=== PATIENT | female | born 1940 | race Caucasian/White ===

== ENCOUNTER 2018-10-30 06:10 | Day surgery (SDC) | payer MEDICARE, BC ==
[2018-10-30] VITALS (513 sets, daily range): BP systolic 112–171; BP diastolic 40–86; PULSE 51–64; TEMP 97.6–97.8; O2SAT 74–99
[~2018-10-30] VITALS: Ht 152.4 cm; Wt 70.1 kg
[~2018-10-30 06:10] MED LIST: ASPIR-LOW81 MG PO; COUMADIN 3MG3 MG/TAB PO; CRESTOR20 MG PO; EVISTA PO; FERROUS SU325 MG/TAB PO; FISH OIL CONC1000 MG PO; FOLIC ACID PO; GLUCOSAMINE/CHONDROI PO; LORTAB 5/500 501 TAB; OSCAL 500MG/VI500 MG PO; TENORMIN 5050 MG/TAB PO; VASOTEC5 MG PO; ZETIA10 MG PO
[2018-10-30 06:59] LABS: HEMATOCRIT 46.2 % (37.0-47.0); MEAN CELL VOLUME 93 fl (80.0-100.0); MEAN CORPUSCULAR HEMOGLOBIN 32 pg (27.0-31.0); MEAN CORPUSCULAR HGB CONC 35 g/dl (33.0-37.0); MEAN PLATELET VOLUME 8.9 fl (7.4-10.4); PLATELET COUNT 175 K/mm3 (130-400); RED BLOOD COUNT 4.97 M/mm3 (4.10-5.30)
[2018-10-30 07:10] LABS: PROTHROMBIN TIME 11.6 SECONDS (9.7-12.8)
[2018-10-30 07:17] LABS: CALCIUM 9.8 mg/dL (8.4-10.2); CREATININE, serum 0.72 (0.52-1.25); POTASSIUM 4.7 mmol/L (3.4-5.0)
[2018-10-30] MEDS ORDERED: CALCIUM-MAGNES1 EAC1 PO (07:36)
[2018-10-30] MEDS ORDERED: THE MEDICINE S200 M2 PO (07:37)
[2018-10-30] MEDS ORDERED: LUTEIN20 M1 PO (07:37)
[2018-10-30] MEDS ORDERED: MASON NATURAL1200 MG PO (07:38)
[2018-10-30] MEDS ORDERED: NATURE'S BLE1000 MCG PO (07:39)
[2018-10-30] MEDS ORDERED: MASON NATURAL2000 IU PO (07:39)
[2018-10-30] MEDS ORDERED: ASPIRIN E.C. 8181 MG PO (07:40)
[2018-10-30] MEDS ORDERED: ZOCOR 40MG40 MG PO (07:40)
[2018-10-30] MEDS ORDERED: MICARDIS40 MG PO (07:41)
[2018-10-30] MEDS ORDERED: MASON NATURAL500 MG PO (07:41)
--- NOTE | 2018-10-30 08:58 | NUR ---
SEE MERGE REPORT FOR MEDICATION ADMINISTRATION TIMES WELL INTRA/POST SEDATION ASSESSMENTS.
--- NOTE | 2018-10-30 11:30 | NUR ---
Report received from laborer powerhouse and pt received per bed to ICU 2 at 1055. Placed on monitor and assessment complete. Dressing to right groin C/D/I. Pt denies any pain or concerns, will continue to follow.
--- NOTE | 2018-10-30 19:13 | NUR ---
Report given to Erika ROONEY and care transfered.
[2018-10-31] VITALS (155 sets, daily range): BP systolic 97–113; BP diastolic 46–72; PULSE 52–69; TEMP 97.6–98; O2SAT 90–96
[2018-10-31 05:18] LABS: BASO # 0.1 (0.0-0.2); EOS # 0.1 (0.0-0.7); EOS % 1.7 % (0-4.0); GRAN # 2.6 (1.4-6.5); HEMATOCRIT 40.8 % (37.0-47.0); HEMOGLOBIN 14.3 g/dl (12.5-16.0); LYMPH # 1.7 (1.2-3.4); LYMPH % 32.9 % (20.0-51.0); MEAN CELL VOLUME 92 fl (80.0-100.0); MEAN CORPUSCULAR HEMOGLOBIN 32 pg (27.0-31.0); MEAN CORPUSCULAR HGB CONC 35 g/dl (33.0-37.0); MEAN PLATELET VOLUME 9.2 fl (7.4-10.4); MONO # 0.7 (0.1-0.6); MONO % 13.2 % (1.7-9.3); PLATELET COUNT 152 K/mm3 (130-400); RED BLOOD COUNT 4.44 M/mm3 (4.10-5.30); REDCELL DISTRIBUTION WIDTH-CV 14.1 % (11.5-14.5)
[2018-10-31 05:29] LABS: CALCIUM 8.9 mg/dL (8.4-10.2); CREATININE, serum 0.62 (0.52-1.25); POTASSIUM 4.2 mmol/L (3.4-5.0)
--- NOTE | 2018-10-31 08:02 | NUR ---
Report received from Erika ROONEY and care resumed.
--- NOTE | 2018-10-31 10:17 | NUR ---
DRE met with the patient to discuss a discharge plan. The pt lives in [place] with her Anibal. The pt does not use any DME and the pt reports independence with ADLs. The pt's PCP is AMALIA Bolanos. The pt receives her medication via mail from [facility] and [facility] in [place]. The pt reports no difficulties obtaining her medications. The pt does not have advanced directives in the EMR, and she was not interested in obtaining a DPOA-HC form at this time. The pt plans to return home with Anibal upon discharge. There are no additional needs at this time.
[2018-10-31] MEDS ORDERED: BRILINTA90 MG PO (10:26)
--- NOTE | 2018-10-31 11:43 | NUR ---
Initial visit; Patient thanked Reeling [employer] Tubing Machine Operator for looking in on her and offering encouragement, active listening and God's blessings.
--- NOTE | 2018-10-31 12:30 | NUR ---
Pt given discharge instructions and questions answered. Pt taken out by wheelchair to private car for discharge at 1215.
== END 2018-10-31 12:15 | disposition home or self-care (01) ==
LOC: COL.CAR 06:10 → ICU 11:04 → COL.CAR 10-31 12:15
PROVIDERS: Internal Medicine Cardiovascular Disease; Nurse Practitioner
DX: I25.10 Atherosclerotic heart disease of native coronary artery without angina pectoris (principal); T82.855A Stenosis of coronary artery stent, initial encounter; I10 Essential (primary) hypertension; Z95.1 Presence of aortocoronary bypass graft; Z88.0 Allergy status to penicillin; Z88.2 Allergy status to sulfonamides; Z79.899 Other long term (current) drug therapy; Z79.82 Long term (current) use of aspirin; Z87.891 Personal history of nicotine dependence; Z95.5 Presence of coronary angioplasty implant and graft
CPT/HCPCS: OP; C1725; C1760; C1769; C1874; C1887; C1894; C9600; J0583; J1644; J2250; J3010; Q9967